=== PATIENT | male | born 1950 | race Caucasian/White ===

== ENCOUNTER 2021-02-10 19:41 | Emergency (ER) | payer MEDICARE ==
[~2021-02-10] VITALS: Ht 175.3 cm; Wt 74.8 kg
[2021-02-10 20:09] VITALS: BP_SYST 147
--- NOTE | 2021-02-10 20:13 | NUR ---
pPatient triaged and placed in waiting room. VSS and patient appears in no acute distress at this time. Accompanied by family , awaiting available bed, and MD notified of need for MSE.
--- NOTE | 2021-02-10 23:40 | NUR ---
Patient to ER bed 7 to gown for evaluation. Side rails up. Report given to Nina
--- NOTE | 2021-02-10 23:46 | NUR ---
Dr. Price bedside for pt eval
--- NOTE | 2021-02-10 23:48 | NUR ---
DR PETTIT TO EXAM LEFT LITTLE FINGER FOR ANIMAL BITE AT 10 AM ;DR ADVISED WASH SOAP AND WATER KEEP CLEAN AND TAKE RX ANTIBIOTIC PRESCRIBED
[2021-02-11] MEDS ORDERED: AMOXICILLIN/CLAVULANATE POTASSIUM 875 MG TABLET PO ONE
[2021-02-11] MEDS ORDERED: DIPH-TET-PERTUS Vaccine 0.5 ML VIAL (ADACEL) I.M. ONE
--- NOTE | 2021-02-11 00:15 | NUR ---
PT GIVEN TDAP IM LT ARM AND PO ANTIBIOTIC ORDERED
[2021-02-11] MEDS ORDERED: AMOX-426 PO (01:24)
--- NOTE | 2021-02-11 01:41 | NUR ---
PT DISCHGED WITH AFTERCARE INSTRUCTIONS AND UNDERSTANDS INSTRUCTIONS RX AT [facility] PT PENDING SALE TO [facility]
[2021-02-11 01:42] VITALS: BP_SYST 121
== END 2021-02-11 01:42 | disposition home or self-care (01) ==
LOC: SED 19:41
DX: S61.217A Laceration without foreign body of left little finger without damage to nail, initial encounter (principal); S61.257A Open bite of left little finger without damage to nail, initial encounter; Z79.899 Other long term (current) drug therapy; W54.0XXA Bitten by dog, initial encounter; Y93.89 Activity, other specified; Y92.89 Other specified places as the place of occurrence of the external cause; Y99.8 Other external cause status
CPT/HCPCS: 90715; 99283